=== PATIENT | male | born 1975 | race Caucasian/White ===

== ENCOUNTER 2017-01-07 13:58 | Emergency (ER) | payer BC ==
[2017-01-07 14:12] VITALS: BP 133/71
--- NOTE | 2017-01-07 14:48 | UC ---
Respiratory Complaint HPI - HPI Summary HPI Summary: 12 days ago developed chills, body aches, cough, chest congestion. A few days into it developed more nasal congestion and body aches, chills reduced. Now still having productive cough, feeling tired/unable to complete even mild exertion due to exhaustion and wheezing. Nasal congestion is now worse. - History of Current Complaint Chief Complaint: UCRespiratory Stated Complaint: COUGH CHEST CONGESTION Time Seen by Provider: 01/07/17 14:32 Hx Obtained From: Patient Onset/Duration: Gradual Onset, Lasting Weeks Timing: Constant Severity Initially: Moderate Severity Currently: Moderate Character: Cough: Productive Aggravating Factors: Exertion, Deep Breaths, Recumbent Position Alleviating Factors: Upright Position Associated Signs And Symptoms: Positive: Chills - resolved, Wheezing, Nasal Congestion - Allergies/Home Medications Allergies/Adverse Reactions: Allergies Allergy/AdvReac Type Severity Reaction Status Date / Time Aspirin Allergy Unknown Verified 09/24/15 09:06 Reaction Details Penicillins [PCN] Allergy Unknown Verified 09/24/15 09:06 Reaction Details Home Medications: Home Medications Ibuprofen [Ibuprofen 200 MG] 200 mg PO 01/07/17 [History] PMH/Surg Hx/FS Hx/Imm Hx Endocrine History Of: Denies: Diabetes, Thyroid Disease Cardiovascular History Of: Denies: Cardiac Disorders, Hypertension Respiratory History Of: Denies: COPD, Asthma GI/ History Of: Denies: Ulcer - Surgical History Surgical History: Yes Surgery Procedure, Year, and Place: WISDOM TEETH 25 YRS AGO - Family History Known Family History: Negative: Blood Disorder - Social History Occupation: Employed Full-time Alcohol Use: Daily Alcohol Amount: 2/DAY Substance Use Type: None Smoking Status (MU): Never Smoked Tobacco Review of Systems Constitutional: Chills, Fatigue Skin: Negative Eyes: Negative ENT: Sore Throat, Nasal Discharge Respiratory: Cough Cardiovascular: Negative Gastrointestinal: Negative Genitourinary: Negative Motor: Negative Neurovascular: Negative Musculoskeletal: Negative Neurological: Negative Psychological: Negative All Other Systems Reviewed And Are Negative: Yes Physical Exam Triage Information Reviewed: Yes Appearance: Well-Appearing, No Pain Distress, Well-Nourished Vital Signs: Initial Vital Signs Temp 98.6 F 01/07/17 14:06 Pulse 76 01/07/17 14:06 Resp 16 01/07/17 14:06 BP 133/71 01/07/17 14:06 Pulse Ox 99 01/07/17 14:06 Vital Signs Reviewed: Yes Eye Exam: Normal Eyes: Positive: Conjunctiva Clear ENT: Positive: Hearing grossly normal, Pharynx normal, Nasal congestion, TMs normal. Negative: Tonsillar swelling, Tonsillar exudate Dental Exam: Normal Neck exam: Normal Neck: Positive: Supple, Nontender, No Lymphadenopathy Respiratory: Positive: Normal breath sounds, No accessory muscle use, Wheezing - minimal, at bases Cardiovascular Exam: Normal Cardiovascular: Positive: RRR, No Murmur Musculoskeletal Exam: Normal Neurological Exam: Normal Psychological Exam: Normal Skin Exam: Normal UC Diagnostic Evaluation - Laboratory O2 Sat by Pulse Oximetry: 99 Respiratory Course/Dx - Differential Dx/Diagnosis Provider Diagnoses: influenza-like illness Discharge - Discharge Plan Condition: Stable Disposition: HOME Patient Education Materials: Acute Bronchitis (ED), Bronchospasm (ED) Additional Instructions: Call or return if you develop increasing fever, shortness of breath, chest pain , bloody sputum, or otherwise worsen. If you have not improved at all after several days, contact your primary care physician or return here.
--- NOTE | 2017-01-07 15:07 | RAD ---
INDICATION: 12 days cough and shortness of breath. COMPARISON: None. TECHNIQUE: Dual energy PA and routine lateral views of the chest were obtained. REPORT: Elevated lung volumes. No pulmonary consolidation, focal pulmonary lesion, pleural effusion, or pneumothorax. The heart, pulmonary vasculature, and mediastinal contours are unremarkable. Mild thoracic degenerative spondylosis. IMPRESSION: Elevated lung volumes suggest potential obstructive lung disease. No evidence for pneumonia.
== END 2017-01-07 15:32 | disposition home or self-care (01) ==
LOC: UCEAST 13:58
DX: J11.1 Influenza due to unidentified influenza virus with other respiratory manifestations (principal); Z88.6 Allergy status to analgesic agent; Z88.0 Allergy status to penicillin; F10.99 Alcohol use, unspecified with unspecified alcohol-induced disorder
CPT/HCPCS: 71020; 99212; G0463

== ENCOUNTER 2019-07-18 08:00 | Emergency (ER) | payer BC ==
[2019-07-18 08:10] VITALS: BP 158/86
--- NOTE | 2019-07-18 09:21 | UC ---
Skin Complaint HPI - HPI Summary HPI Summary: PATIENT COMPLAINS OF SEVERAL WEEKS OF IRRITATION PERIANALLY. IS A VERY ACTIVE PERSON AND DOES A LOT OF HIKING AND EXERCISING WHICH HE THINKS HAS AGGRAVATED THE CONDITION. HE HAS NOTED A SKIN LESION THERE AND FOR THE PAST ONE WEEK HAS HAD INTERMITTENT MALAISE AND ACHINESS. FELT LIKE HE WAS "COMING DOWN WITH SOMETHING". FOR THAT SAME PERIOD OF TIME NOTED SWOLLEN INGUINAL LYMPH NODES. 4 DAYS AGO STARTED TAKING SOME LEFTOVER BACTRIM TO SEE IF THIS WOULD HELP. HE THOUGHT MAYBE HE WAS GETTING A BIT BETTER BUT THE LESION IS NOT RESOLVING. IS IN A MONOGAMOUS SEXUAL RELATIONSHIP WITH ONE FEMALE. DENIES ANY HIGH RISK SEXUAL ACTIVITY. NO ANAL PENETRATIVE ACTIVITIES. NO DIARRHEA OR CONSTIPATION OR PAIN WITH BOWEL MOVEMENTS. - History of Current Complaint Chief Complaint: UCSkin Time Seen by Provider: 07/18/19 08:43 Stated Complaint: WOUND CHECK Hx Obtained From: Patient Onset/Duration: Gradual Onset, Lasting Weeks, Still Present Timing: Constant Onset Severity: Moderate Current Severity: Moderate Pain Intensity: 3 Pain Scale Used: 0-10 Numeric Location: Discrete Character: Pain Aggravating Factor(s): Touch Alleviating Factor(s): Nothing Associated Signs & Symptoms: Positive: Negative - Allergy/Home Medications Allergies/Adverse Reactions: Allergies Allergy/AdvReac Type Severity Reaction Status Date / Time aspirin Allergy Vomiting Verified 07/18/19 08:12 Penicillins Allergy Unknown Verified 07/18/19 08:12 Reaction Details PMH/Surg Hx/FS Hx/Imm Hx Previously Healthy: Yes - Surgical History Surgical History: Yes Surgery Procedure, Year, and Place: WISDOM TEETH 25 YRS AGO - Family History Known Family History: Positive: Non-Contributory Negative: Blood Disorder - Social History Alcohol Use: Daily Alcohol Amount: 3 drinks Substance Use Type: None Smoking Status (MU): Never Smoked Tobacco Review of Systems All Other Systems Reviewed And Are Negative: Yes Constitutional: Positive: Negative Skin: Positive: Rash Respiratory: Positive: Negative Cardiovascular: Positive: Negative Gastrointestinal: Positive: Negative Genitourinary: Positive: Negative Physical Exam Triage Information Reviewed: Yes Appearance: Well-Appearing, No Pain Distress, Well-Nourished Vital Signs: Initial Vital Signs Temp 98 F 07/18/19 08:04 Pulse 61 07/18/19 08:04 Resp 16 07/18/19 08:04 BP 158/86 07/18/19 08:04 Pulse Ox 100 07/18/19 08:04 Vital Signs Reviewed: Yes Eyes: Positive: Conjunctiva Clear ENT: Positive: Hearing grossly normal Neck: Positive: Supple Respiratory: Positive: No respiratory distress, No accessory muscle use Cardiovascular: Positive: Pulses Normal Abdomen Description: Positive: Soft Musculoskeletal: Positive: No Edema Neurological: Positive: Alert Psychological: Positive: Age Appropriate Behavior Skin: Positive: Other - TENDER SHALLOW BASED ULCERATION PERIANALLY WITH SLIGHT SIRROUN DING ERYTHEMA. SCATTERED 2MM VESICULAR LESIONS ADJACENT. NO HEMORRHOIDS. Course/Dx - Course Course Of Treatment: HISTORY AND PHYSICAL CONSISTENT WITH GENITAL HERPES OUTBREAK. WILL TREAT WITH VALTREX. ADVISED TO ABSTAIN FROM ALL INTIMATE CONTACT UNTIL LESIONS HAVE RESOLVED. SWAB SENT FOR VIRAL CULTURE. - Diagnoses Provider Diagnosis: Genital herpes Discharge ED - Sign-Out/Discharge Documenting (check all that apply): Patient Departure All imaging exams completed and their final reports reviewed: No Studies - Discharge Plan Condition: Stable Disposition: HOME Prescriptions: Valacyclovir HCl [Valacyclovir] 1,000 mg PO BID #20 tablet Patient Education Materials: Genital Herpes Simplex (ED) Referrals: [facility] [Outside] - If Needed Sergey ALLAN,Marcus Sloan [Medical Doctor] - If Needed Additional Instructions: CLINICALLY YOU APPEAR TO HAVE A GENITAL HERPES OUTBREAK. TAKE THE VALACYCLOVIR TWICE DAILY FOR 10 DAYS. THIS WILL HELP EXPEDITE RECOVERY. AVOID INTIMATE CONTACT WITH THE AREA UNTIL IT HAS COMPLETELY RESOLVED. SWAB SENT FOR VIRAL CULTURE. SEEK FOLLOW-UP IF IT IS NOT IMPROVING EXPECTED OVER THE NEXT WEEK OR SO. CALL THE NUMBER BELOW FOR ASSISTANCE IN ESTABLISHING WITH A PCP An additional resource available to assist in finding the appropriate physician for your health care needs is [facility] ([facility]). You may contact them by calling [phone]. - Billing Disposition and Condition Condition: STABLE Disposition: Home
--- NOTE | 2019-07-20 12:56 | UC ---
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 On Valtrex. No change in treatment. Gordon Dorado MD Course/Dx - Diagnoses Provider Diagnoses: Genital herpes Discharge ED - Sign-Out/Discharge Documenting (check all that apply): Post-Discharge Follow Up All imaging exams completed and their final reports reviewed: No Studies - Discharge Plan Condition: Stable Disposition: HOME Prescriptions: Valacyclovir HCl [Valacyclovir] 1,000 mg PO BID #20 tablet Patient Education Materials: Genital Herpes Simplex (ED) Referrals: [facility] [Outside] - If Needed Sergey ALLAN,Marcus Sloan [Medical Doctor] - If Needed Additional Instructions: CLINICALLY YOU APPEAR TO HAVE A GENITAL HERPES OUTBREAK. TAKE THE VALACYCLOVIR TWICE DAILY FOR 10 DAYS. THIS WILL HELP EXPEDITE RECOVERY. AVOID INTIMATE CONTACT WITH THE AREA UNTIL IT HAS COMPLETELY RESOLVED. SWAB SENT FOR VIRAL CULTURE. SEEK FOLLOW-UP IF IT IS NOT IMPROVING EXPECTED OVER THE NEXT WEEK OR SO. CALL THE NUMBER BELOW FOR ASSISTANCE IN ESTABLISHING WITH A PCP An additional resource available to assist in finding the appropriate physician for your health care needs is [facility] ([facility]). You may contact them by calling [phone]. - Billing Disposition and Condition Condition: STABLE Disposition: Home
== END 2019-07-18 09:15 | disposition home or self-care (01) ==
LOC: UCEAST 08:00
DX: A60.00 Herpesviral infection of urogenital system, unspecified (principal); Z88.0 Allergy status to penicillin
CPT/HCPCS: 87529; 99212; G0463